=== PATIENT | female | born 1970 | race Caucasian/White ===

== ENCOUNTER 2020-03-04 13:34 | Emergency (ER) | payer OTHER ==
[~2020-03-04 13:34] MED LIST: ALL DAY ALLERGY10 M2 PO; BACLOFEN 10MG T10 MG PO; KHEDEZLA50 MG PO; LISINOPRIL10 MG PO; OMEPRAZOLE40 MG PO; SYMBICORT 80-10.2 GM INH; ULTRAM50 MG PO; VENTOLIN HFA IN18 GM INH
[2020-03-04 16:40] LABS: BASOPHIL 0.5 % (0-2); EOSINOPHIL 1.2 % (0-5); HCT 39.9 % (37.0-47.0); HGB 12.9 g/dl (12.5-16.0); LYMPHOCYTE 47.3 % (15-48); MCH 28.7 pg (25.0-31.0); MCHC 32.3 g/dL (32.0-36.0); MCV 88.7 fL (78.0-100.0); MONOCYTE 5.5 % (0-12); MPV 9.7 fL (6.0-9.5); NEUTROPHIL 45.3 % (41-80); NRBC 0; PLT 280 K/uL (150-400); RDW 13.3 % (11.5-14.0)
[2020-03-04 16:59] LABS: ALBUMIN 3.3 g/dL (3.4-5.0); BILIRUBIN - TOTAL 0.1 mg/dL (0.2-1.0); BUN/CREAT RATIO (CALC) 12.5 RATIO; CREATININE 0.72 mg/dL (0.51-0.95); GLOBULIN (CALCULATION) 3.7 g/dL; POTASSIUM 3.4 mmol/L (3.5-5.1)
== END 2020-03-04 18:25 | disposition home or self-care (01) ==
LOC: FER 13:34
PROVIDERS: Nurse Practitioner Family
DX: B34.9 Viral infection, unspecified (principal); R07.89 Other chest pain; H93.8X2 Other specified disorders of left ear; I10 Essential (primary) hypertension; J44.9 Chronic obstructive pulmonary disease, unspecified; F17.210 Nicotine dependence, cigarettes, uncomplicated; Z88.6 Allergy status to analgesic agent; Z79.82 Long term (current) use of aspirin; Z79.899 Other long term (current) drug therapy; Z20.822 Contact with and (suspected) exposure to COVID-19
CPT/HCPCS: 36415; 71045; 80053; 82728; 84145; 84484; 85025; 85379; 93005; U0002